=== PATIENT | female | born 1985 | race Two or more races ===

== ENCOUNTER 2016-09-16 09:31 | Emergency (ER) | payer BC ==
[~2016-09-16] VITALS: Ht 162.6 cm; Wt 67.6 kg
[~2016-09-16 09:31] MED LIST: NORPTMEDS CO
[2016-09-16] MEDS ORDERED: ACETAMINOPHEN 325 MG TAB PO ONE (09:45)
[2016-09-16 10:11] VITALS: BP 122/68
[2016-09-16] MEDS ORDERED: cefTRIAXone SOD 1,000 MG VL IM ONE (11:00)
== END 2016-09-16 11:20 | disposition home or self-care (01) ==
LOC: ER 09:31
DX: J03.90 Acute tonsillitis, unspecified (principal); J06.9 Acute upper respiratory infection, unspecified
CPT/HCPCS: 71020; 96372; 99284; J0696

== ENCOUNTER 2016-10-17 20:14 | Emergency (ER) | payer BC ==
[~2016-10-17] VITALS: Ht 154.9 cm; Wt 57.9 kg
[2016-10-17 21:05] LABS: Basophils # (auto) 0.1 uL; Basophils % (auto) 0.5 % (0.0-2.0); Eosinophils # (auto) 0.1 uL; Eosinophils % (auto) 1.4 % (0.0-7.0); Hematocrit 42.1 % (36.0-46.0); Hemoglobin 13.9 g/dL (12.2-16.2); Lymphocytes # (auto) 3.2 uL; Lymphocytes % (auto) 33.6 % (10.0-50.0); Mean Corpuscular Hemoglobin 28.1 pg (28.0-32.0); Mean Corpuscular Volume 85.1 fL (80.0-100.0); Mean Platelet Volume 8.6 fL (7.4-10.4); Monocytes # (auto) 0.6 uL; Monocytes % (auto) 6.7 % (0.0-12.0); Neutrophils # (auto) 5.5 uL; Neutrophils % (auto) 57.8 % (37.0-80.0); Platelet Count (auto) 298 10^3/uL (140-450); Red Cell Distribution Width 13.8 % (11.6-16.0); White Blood Cell 9.5 10^3/uL (4.4-10.8)
[2016-10-17 21:23] LABS: Albumin 4.3 g/dL (3.4-5.0); BUN/Creatinine Ratio 17.3; Calcium 8.8 mg/dL (8.5-10.1); Potassium 3.6 mmol/L (3.5-5.1)
[2016-10-17 21:23] LABS: Urine Bilirubin Negative (Negative); Urine Blood Negative /uL (Negative); Urine Color Yellow (Yellow); Urine Glucose Normal (Normal); Urine Ketone TRACE (Negative); Urine Mucus FEW (None Seen); Urine Nitrite Negative (Negative); Urine RBC 2 /hpf (0 - 4); Urine Squamous Epithelial Cell FEW /hpf (<5); Urine Urobilinogen Normal (Negative); Urine pH 6.5 (5.0-8.0)
[2016-10-17 21:26] LABS: Bilirubin, Total 0.3 mg/dL (0.2-1.0); Total Protein 7.8 g/dL (6.4-8.2)
[2016-10-17] MEDS ORDERED: ACETAMINOPHEN 325 MG TAB PO ONE ×2 (22:17→22:45)
[2016-10-18 01:20] VITALS: BP 118/77
== END 2016-10-18 01:11 | disposition home or self-care (01) ==
LOC: ER 20:17
DX: M54.12 Radiculopathy, cervical region (principal); M79.1 Myalgia; M62.838 Other muscle spasm
CPT/HCPCS: 36415; 71010; 72125; 72128; 80053; 81001; 85025

== ENCOUNTER → 2016-10-24 | Outpatient (CLI) | payer BC ==
[2016-10-24 08:33] LABS: Basophils # (auto) 0 uL; Basophils % (auto) 0.6 % (0.0-2.0); Eosinophils # (auto) 0.2 uL; Eosinophils % (auto) 2.4 % (0.0-7.0); Hematocrit 44.8 % (36.0-46.0); Hemoglobin 14.9 g/dL (12.2-16.2); Lymphocytes # (auto) 2.6 uL; Lymphocytes % (auto) 34.5 % (10.0-50.0); Mean Corpuscular Hemoglobin 28.2 pg (28.0-32.0); Mean Corpuscular Hgb Conc. 33.2 g/dL (32.0-36.0); Mean Corpuscular Volume 84.8 fL (80.0-100.0); Mean Platelet Volume 9.1 fL (7.4-10.4); Monocytes # (auto) 0.5 uL; Monocytes % (auto) 6.7 % (0.0-12.0); Neutrophils # (auto) 4.2 uL; Neutrophils % (auto) 55.8 % (37.0-80.0); Platelet Count (auto) 332 10^3/uL (140-450); Red Cell Distribution Width 13.8 % (11.6-16.0); White Blood Cell 7.5 10^3/uL (4.4-10.8)
[2016-10-24 09:06] LABS: Albumin 4.5 g/dL (3.4-5.0); BUN/Creatinine Ratio 15.7; Bilirubin, Total 0.5 mg/dL (0.2-1.0); Potassium 3.9 mmol/L (3.5-5.1)
== END | disposition home or self-care (01) ==
LOC: LAB 06:54
PROVIDERS: ATTEND Internal Medicine
DX: R61 Generalized hyperhidrosis (principal); M79.1 Myalgia
CPT/HCPCS: 36415; 80053; 82550; 83615; 84439; 84443; 85025; 87040

== ENCOUNTER → 2017-02-15 | Outpatient (CLI) | payer BC | END | disposition home or self-care (01) | LOC: LAB 08:45 | DX: M45.0 Ankylosing spondylitis of multiple sites in spine (principal); E03.9 Hypothyroidism, unspecified; M32.10 Systemic lupus erythematosus, organ or system involvement unspecified; M06.9 Rheumatoid arthritis, unspecified; M25.50 Pain in unspecified joint; D64.9 Anemia, unspecified; I10 Essential (primary) hypertension | CPT/HCPCS: 36415; 84443; 85652; 86038; 86141; 86200; 86431; 86812 ==

== ENCOUNTER → 2017-07-11 | Outpatient (CLI) | payer BC ==
[2017-07-11 10:21] LABS: Basophils # (auto) 0.1 uL; Basophils % (auto) 0.9 % (0.0-2.0); Eosinophils # (auto) 0.1 uL; Eosinophils % (auto) 1.9 % (0.0-7.0); Hematocrit 42.5 % (36.0-46.0); Lymphocytes # (auto) 2.7 uL; Lymphocytes % (auto) 37.9 % (10.0-50.0); Mean Corpuscular Hemoglobin 28.6 pg (28.0-32.0); Mean Corpuscular Hgb Conc. 32.9 g/dL (32.0-36.0); Mean Platelet Volume 8.2 fL (6.9-10.8); Monocytes # (auto) 0.6 uL; Monocytes % (auto) 8.8 % (0.0-12.0); Neutrophils # (auto) 3.6 uL; Neutrophils % (auto) 50.5 % (37.0-80.0); Nucleated Red Blood Cells % 0.1 %; Platelet Count (auto) 255 10^3/uL (140-450); Red Cell Distribution Width 13.6 % (11.8-14.3); White Blood Cell 7.2 10^3/uL (4.4-10.8)
[2017-07-11 11:04] LABS: Albumin 3.9 g/dL (3.4-5.0); BUN/Creatinine Ratio 17.5; Calcium 8.5 mg/dL (8.5-10.1); Potassium 3.6 mmol/L (3.5-5.1)
[2017-07-11 11:06] LABS: Bilirubin, Total 0.5 mg/dL (0.2-1.0); Total Protein 7.7 g/dL (6.4-8.2)
== END | disposition home or self-care (01) ==
LOC: LAB 09:52
PROVIDERS: ATTEND Internal Medicine
DX: B34.9 Viral infection, unspecified (principal); R00.2 Palpitations
CPT/HCPCS: 36415; 80053; 84439; 84443; 85025; 85379; 85652

== ENCOUNTER → 2017-10-17 | Outpatient (CLI) | payer BC | END | disposition home or self-care (01) | LOC: LAB 08:40 | PROVIDERS: ATTEND Obstetrics & Gynecology | DX: N39.0 Urinary tract infection, site not specified (principal); N91.2 Amenorrhea, unspecified | CPT/HCPCS: 36415; 84702; 87086 ==

== ENCOUNTER → 2017-11-28 | Outpatient (CLI) | payer BC ==
[2017-11-28 12:43] LABS: Basophils # (auto) 0.1 uL; Basophils % (auto) 0.8 % (0.0-2.0); Eosinophils # (auto) 0.1 uL; Eosinophils % (auto) 0.7 % (0.0-7.0); Hematocrit 39.8 % (36.0-46.0); Hemoglobin 13.4 g/dL (12.2-16.2); Lymphocytes # (auto) 2.4 uL; Lymphocytes % (auto) 20.4 % (10.0-50.0); Mean Corpuscular Hemoglobin 28.9 pg (28.0-32.0); Mean Corpuscular Hgb Conc. 33.7 g/dL (32.0-36.0); Mean Corpuscular Volume 85.7 fL (80.0-100.0); Neutrophils # (auto) 8.4 uL; Neutrophils % (auto) 70.1 % (37.0-80.0); Platelet Count (auto) 252 10^3/uL (140-450); Red Blood Cells 4.64 10^6/uL (4.0-5.20); Red Cell Distribution Width 13.6 % (11.8-14.3); White Blood Cell 11.9 10^3/uL (4.4-10.8)
[2017-11-28 12:59] LABS: Alcohol, Urine < 3.0 mg/dL (0-5); Amphetamine Screen, Urine NEGATIVE (NEGATIVE); Barbiturate Scree,Urine NEGATIVE (NEGATIVE); Benzodiazephine Screen, Urine NEGATIVE (NEGATIVE); Cannabinoid Screen, Urine NEGATIVE (NEGATIVE); Cocaine Screen, Urine NEGATIVE (NEGATIVE); Opiate Scree,Urine NEGATIVE (NEGATIVE); Phencyclidine Screen, Urine NEGATIVE (NEGATIVE)
[2017-11-29 05:06] LABS: RPR Non Reactive (Non Reactive)
== END | disposition home or self-care (01) ==
LOC: LAB 12:09
PROVIDERS: ATTEND Obstetrics & Gynecology
DX: O23.40 Unspecified infection of urinary tract in pregnancy, unspecified trimester (principal); Z3A.00 Weeks of gestation of pregnancy not specified
CPT/HCPCS: 36415; 80307; 83036; 84144; 84702; 85025; 86592; 86703; 86762; 86850; 86900; 86901; 87086; 87340

== ENCOUNTER 2018-01-03 16:50 | Inpatient (IN) | payer BC ==
[~2018-01-03] VITALS: Ht 154.9 cm; Wt 71.7 kg
[2018-01-03] MEDS ORDERED: LACT. RINGERS/OXYTOCIN 20UNITS 1,000 ML IV SCH ×2 (17:04→17:23)
[2018-01-03] MEDS ORDERED: WITCH HAZEL-GLYCERIN PAD TOP PRN (17:15)
[2018-01-03] MEDS ORDERED: PHISODERM TOP SOLN 240ML BTL TOP PRN (17:15)
[2018-01-03] MEDS ORDERED: DERMOPLAST 60ML BOTTLE TOP PRN (17:15)
[2018-01-03] MEDS ORDERED: LIDOCAINE 2% (LOCAL ANESTH.) PF 5ml SDV ID PRN (17:15)
[2018-01-03] MEDS ORDERED: DIPHENOXYLATE W/ATROPINE 2.5 MG TAB PO PRN (17:30)
[2018-01-03] MEDS ORDERED: PROMETHAZINE HCL 25 MG/ML 1ML IM PRN (17:30)
[2018-01-03] MEDS ORDERED: TERBUTALINE SULFATE 1 MG/ML 1ML VIAL SC PRN (17:30)
[2018-01-03] MEDS ORDERED: ACETAMINOPHEN 325 MG TAB PO PRN (17:30)
[2018-01-03 17:42] LABS: Basophils # (auto) 0.1 uL; Basophils % (auto) 0.4 % (0.0-2.0); Eosinophils # (auto) 0.2 uL; Eosinophils % (auto) 1.7 % (0.0-7.0); Hemoglobin 12.7 g/dL (12.2-16.2); Lymphocytes # (auto) 2.5 uL; Lymphocytes % (auto) 20.9 % (10.0-50.0); Mean Corpuscular Hemoglobin 28.6 pg (28.0-32.0); Mean Corpuscular Hgb Conc. 33.5 g/dL (32.0-36.0); Mean Corpuscular Volume 85.3 fL (80.0-100.0); Monocytes % (auto) 8.3 % (0.0-12.0); Neutrophils # (auto) 8.2 uL; Neutrophils % (auto) 68.7 % (37.0-80.0); Platelet Count (auto) 231 10^3/uL (140-450); Red Blood Cells 4.45 10^6/uL (4.0-5.20); Red Cell Distribution Width 13.5 % (11.8-14.3)
[2018-01-03 17:54] LABS: Alanine Aminotransferase 32 U/L (13-56); Alkaline Phosphatase 49 U/L (45-117); Anion Gap 10 (5-15); Aspartate Aminotransferase 20 U/L (15-37); BUN/Creatinine Ratio 20.7; Bilirubin, Total < 0.1 mg/dL (0.2-1.0); Blood Urea Nitrogen 12 mg/dL (7-18); Calcium 8.5 mg/dL (8.5-10.1); Carbon Dioxide 22 mmol/L (21-32); Chloride 106 mmol/L (98-107); GFR African American 156 mL/min; GFR Non-African American 129 mL/min; Glucose 96 mg/dL (74-106); INR 0.92 (0.9-1.15); Partial Thromboplastin Time 26.6 sec (22.64-33.71); Potassium 3.3 mmol/L (3.5-5.1); Sodium 138 mmol/L (136-145); Total Protein 6.7 g/dL (6.4-8.2)
[2018-01-03 18:39] LABS: Urine Bacteria FEW /hpf (None Seen); Urine Blood Negative /uL (Negative); Urine Specific Gravity 1.008 (1.001-1.035); Urine WBC <1 /hpf (0 - 5)
[2018-01-03] MEDS: LACTATED RINGER'S 1,000 ML IV SCH ×2 (18:40→23:45)
[2018-01-03 18:46] LABS: Alcohol, Urine < 3.0 mg/dL (0-5); Amphetamine Screen, Urine NEGATIVE (NEGATIVE); Barbiturate Scree,Urine NEGATIVE (NEGATIVE); Benzodiazephine Screen, Urine NEGATIVE (NEGATIVE); Cannabinoid Screen, Urine NEGATIVE (NEGATIVE); Cocaine Screen, Urine NEGATIVE (NEGATIVE); Opiate Scree,Urine NEGATIVE (NEGATIVE); Phencyclidine Screen, Urine NEGATIVE (NEGATIVE)
[2018-01-03] MEDS: NALBUPHINE HCL 10 MG/1ml INJECTION IV PRN (23:42)
[2018-01-04] VITALS (7 sets, daily range): BP systolic 104–128; BP diastolic 58–82
[2018-01-04] MEDS ORDERED: BUTORPHANOL TARTRATE 2 MG/1 ML VIAL IV PRN (03:30)
[2018-01-04] MEDS: NALBUPHINE HCL 10 MG/1ml INJECTION IV PRN (07:58)
[2018-01-04] MEDS ORDERED: LACT. RINGERS/OXYTOCIN 20UNITS 500 ML IV ONE (08:27)
[2018-01-04] MEDS ORDERED: IBUPROFEN 600 MG TAB PO PRN (08:30)
[2018-01-04] MEDS ORDERED: NALBUPHINE HCL 10 MG/1ml INJECTION IV PRN (08:45)
[2018-01-04] MEDS ORDERED: LACT. RINGERS/OXYTOCIN 20UNITS 1,000 ML IV SCH (09:27)
[2018-01-04] MEDS ORDERED: METHYLERGONOVINE MALEATE 0.2 MG/ML AMP IM ONE (12:00)
== END 2018-01-04 19:34 | disposition home or self-care (01) | DRG 779 ==
LOC: LDRP 16:50
PROVIDERS: ADMIT Specialist; ATTEND Specialist
PROC: 10E0XZZ Delivery of Products of Conception, External Approach (ICD-10-PCS; principal; 2018-01-04)
PROC: 3E033VJ Introduction of Other Hormone into Peripheral Vein, Percutaneous Approach (ICD-10-PCS; 2018-01-04)
DX: O02.1 Missed abortion (principal); Z37.1 Single stillbirth; Z3A.16 16 weeks gestation of pregnancy
CPT/HCPCS: 36415; 76805; 76856; 80053; 80307; 81001; 85025; 85362; 85610; 85730; 86850; 86900; 86901; 96365; 96366; 96375; J2590

== ENCOUNTER → 2018-03-21 | Outpatient (CLI) | payer BC ==
[2018-03-21 09:06] LABS: Albumin 4.2 g/dL (3.4-5.0); BUN/Creatinine Ratio 16.9; Bilirubin, Total 0.6 mg/dL (0.2-1.0); Calcium 8.6 mg/dL (8.5-10.1); Potassium 3.6 mmol/L (3.5-5.1); Total Protein 8.3 g/dL (6.4-8.2)
[2018-03-21 09:14] LABS: Basophils # (auto) 0.1 uL; Basophils % (auto) 0.8 % (0.0-2.0); Eosinophils # (auto) 0.1 uL; Eosinophils % (auto) 1.3 % (0.0-7.0); Hematocrit 42.1 % (36.0-46.0); Hemoglobin 14.1 g/dL (12.2-16.2); Lymphocytes # (auto) 2.8 uL; Lymphocytes % (auto) 30.4 % (10.0-50.0); Mean Corpuscular Hemoglobin 28.8 pg (28.0-32.0); Mean Corpuscular Hgb Conc. 33.5 g/dL (32.0-36.0); Mean Corpuscular Volume 85.8 fL (80.0-100.0); Monocytes # (auto) 0.8 uL; Monocytes % (auto) 8.8 % (0.0-12.0); Neutrophils # (auto) 5.3 uL; Neutrophils % (auto) 58.7 % (37.0-80.0); Platelet Count (auto) 238 10^3/uL (140-450); Red Blood Cells 4.91 10^6/uL (4.0-5.20); Red Cell Distribution Width 13.9 % (11.8-14.3); White Blood Cell 9.1 10^3/uL (4.4-10.8)
[2018-03-21 09:33] LABS: Free T4 (Free Thyroxine) 0.98 ng/dL (0.89-1.76)
[2018-03-21 09:35] LABS: Follicle Stimulating Hormone 0.44 IU/L (SEE BELOW)
[2018-03-21 11:42] LABS: Urine Bacteria FEW /hpf (None Seen); Urine Blood Negative /uL (Negative); Urine Mucus FEW (None Seen); Urine WBC 3 /hpf (0 - 5)
== END | disposition home or self-care (01) ==
LOC: LAB 08:24
PROVIDERS: ATTEND Internal Medicine
DX: R61 Generalized hyperhidrosis (principal); I10 Essential (primary) hypertension
CPT/HCPCS: 36415; 80053; 80061; 81001; 83001; 83615; 84439; 84443; 85025; 85652; 87040

== ENCOUNTER → 2018-04-05 | Outpatient (CLI) | payer BC | END | disposition home or self-care (01) | LOC: LAB 16:16 | PROVIDERS: ATTEND Internal Medicine | DX: N91.2 Amenorrhea, unspecified (principal) | CPT/HCPCS: 36415; 84702 ==

== ENCOUNTER → 2018-05-03 | Outpatient (CLI) | payer BC ==
[2018-05-03 15:32] LABS: Basophils # (auto) 0 uL; Basophils % (auto) 0.4 % (0.0-2.0); Eosinophils # (auto) 0.1 uL; Eosinophils % (auto) 1.2 % (0.0-7.0); Hematocrit 38.8 % (36.0-46.0); Hemoglobin 13.1 g/dL (12.2-16.2); Lymphocytes # (auto) 2.3 uL; Lymphocytes % (auto) 25.7 % (10.0-50.0); Mean Corpuscular Hemoglobin 29.3 pg (28.0-32.0); Mean Corpuscular Hgb Conc. 33.7 g/dL (32.0-36.0); Monocytes # (auto) 0.8 uL; Monocytes % (auto) 9.3 % (0.0-12.0); Neutrophils # (auto) 5.7 uL; Neutrophils % (auto) 63.4 % (37.0-80.0); Platelet Count (auto) 229 10^3/uL (140-450); Red Blood Cells 4.46 10^6/uL (4.0-5.20); Red Cell Distribution Width 13.9 % (11.8-14.3); White Blood Cell 9.1 10^3/uL (4.4-10.8)
[2018-05-03 15:47] LABS: Alcohol, Urine < 3.0 mg/dL (0-5); Amphetamine Screen, Urine NEGATIVE (NEGATIVE); Barbiturate Scree,Urine NEGATIVE (NEGATIVE); Benzodiazephine Screen, Urine NEGATIVE (NEGATIVE); Cannabinoid Screen, Urine NEGATIVE (NEGATIVE); Cocaine Screen, Urine NEGATIVE (NEGATIVE); Opiate Scree,Urine NEGATIVE (NEGATIVE); Phencyclidine Screen, Urine NEGATIVE (NEGATIVE)
[2018-05-04 06:06] LABS: RPR Non Reactive (Non Reactive)
== END | disposition home or self-care (01) ==
LOC: LAB 13:31
PROVIDERS: ATTEND Obstetrics & Gynecology
DX: Z34.81 Encounter for supervision of other normal pregnancy, first trimester (principal); Z3A.01 Less than 8 weeks gestation of pregnancy
CPT/HCPCS: 36415; 80307; 83036; 84144; 84702; 85025; 86592; 86703; 86762; 86850; 86900; 86901; 87086; 87340

== ENCOUNTER 2018-05-18 03:47 | Emergency (ER) | payer BC ==
[~2018-05-18] VITALS: Ht 154.9 cm; Wt 73.5 kg
[2018-05-18] MEDS ORDERED: ACETAMINOPHEN 500 MG TAB PO ONE (07:30)
[2018-05-18 08:24] VITALS: BP 113/71
== END 2018-05-18 08:45 | disposition home or self-care (01) ==
LOC: ER 03:52
DX: O26.891 Other specified pregnancy related conditions, first trimester (principal); M54.41 Lumbago with sciatica, right side; Z3A.12 12 weeks gestation of pregnancy
CPT/HCPCS: 76801

== ENCOUNTER 2018-06-14 02:27 | Emergency (ER) | payer BC ==
[~2018-06-14] VITALS: Ht 154.9 cm; Wt 73.0 kg
[2018-06-14 03:14] LABS: Basophils # (auto) 0.1 uL; Basophils % (auto) 0.5 % (0.0-2.0); Eosinophils # (auto) 0.4 uL; Eosinophils % (auto) 3.7 % (0.0-7.0); Hematocrit 37.6 % (36.0-46.0); Hemoglobin 12.6 g/dL (12.2-16.2); Lymphocytes # (auto) 2.6 uL; Lymphocytes % (auto) 25.3 % (10.0-50.0); Mean Corpuscular Hemoglobin 28.7 pg (28.0-32.0); Mean Corpuscular Hgb Conc. 33.6 g/dL (32.0-36.0); Mean Corpuscular Volume 85.3 fL (80.0-100.0); Monocytes # (auto) 0.9 uL; Monocytes % (auto) 9.4 % (0.0-12.0); Neutrophils # (auto) 6.2 uL; Neutrophils % (auto) 61.1 % (37.0-80.0); Platelet Count (auto) 192 10^3/uL (140-450); Red Cell Distribution Width 13.4 % (11.8-14.3); White Blood Cell 10.1 10^3/uL (4.4-10.8)
[2018-06-14 03:35] LABS: Albumin 2.9 g/dL (3.4-5.0); Calcium 8.5 mg/dL (8.5-10.1); Potassium 3.1 mmol/L (3.5-5.1)
[2018-06-14 03:37] LABS: Bilirubin, Total 0.2 mg/dL (0.2-1.0); Total Protein 6.3 g/dL (6.4-8.2)
[2018-06-14 04:03] LABS: Urine Bacteria FEW /hpf (None Seen); Urine Blood TRACE /uL (Negative); Urine Specific Gravity 1.006 (1.001-1.035); Urine WBC 2 /hpf (0 - 5)
[2018-06-14] MEDS ORDERED: ONDANSETRON HCL 4 MG/2 ML VIAL IV ONE (04:45)
[2018-06-14] MEDS ORDERED: SODIUM CHLORIDE 0.9% 1,000 ML IV ONE (04:45)
[2018-06-14 07:50] VITALS: BP 95/65
[2018-06-14] MEDS ORDERED: POTASSIUM EFFERVESENT TAB 25 MEQ PO ONE (08:30)
== END 2018-06-14 08:54 | disposition home or self-care (01) ==
LOC: ER 02:27
DX: O46.92 Antepartum hemorrhage, unspecified, second trimester (principal); O21.8 Other vomiting complicating pregnancy; Z3A.17 17 weeks gestation of pregnancy
CPT/HCPCS: 36415; 76805; 80053; 81001; 84702; 85025; 94761; 96361; 96374; 99285; J2405; J7030

== ENCOUNTER 2018-06-16 06:53 | Emergency (ER) | payer BC ==
[~2018-06-16] VITALS: Ht 154.9 cm; Wt 73.0 kg
[2018-06-16 08:37] LABS: Basophils # (auto) 0 uL; Basophils % (auto) 0.3 % (0.0-2.0); Eosinophils # (auto) 0.2 uL; Eosinophils % (auto) 1.6 % (0.0-7.0); Hematocrit 38.7 % (36.0-46.0); Lymphocytes % (auto) 18.9 % (10.0-50.0); Mean Corpuscular Hemoglobin 28.9 pg (28.0-32.0); Mean Corpuscular Hgb Conc. 33.7 g/dL (32.0-36.0); Mean Corpuscular Volume 85.9 fL (80.0-100.0); Monocytes # (auto) 0.7 uL; Monocytes % (auto) 7.2 % (0.0-12.0); Neutrophils # (auto) 7.5 uL; Nucleated Red Blood Cells % 0.1 %; Platelet Count (auto) 186 10^3/uL (140-450); Red Cell Distribution Width 13.4 % (11.8-14.3); White Blood Cell 10.4 10^3/uL (4.4-10.8)
[2018-06-16 08:44] LABS: Albumin 2.9 g/dL (3.4-5.0); BUN/Creatinine Ratio 13.7; Calcium 8.4 mg/dL (8.5-10.1); Potassium 3.4 mmol/L (3.5-5.1)
[2018-06-16 08:47] LABS: Bilirubin, Total 0.2 mg/dL (0.2-1.0); Total Protein 6.4 g/dL (6.4-8.2)
[2018-06-16 09:19] LABS: Urine Amorphous Crystal FEW /hpf (None Seen); Urine Bacteria FEW /hpf (None Seen); Urine Blood TRACE /uL (Negative); Urine Mucus FEW (None Seen); Urine Specific Gravity 1.011 (1.001-1.035); Urine WBC 2 /hpf (0 - 5)
[2018-06-16 11:20] VITALS: BP 124/67
== END 2018-06-16 11:24 | disposition home or self-care (01) ==
LOC: ER 06:53
DX: O20.0 Threatened abortion (principal); Z3A.16 16 weeks gestation of pregnancy
CPT/HCPCS: 36415; 76805; 80053; 81001; 84702; 85025; 99285; J7030

== ENCOUNTER → 2018-09-05 | Outpatient (CLI) | payer BC ==
[2018-09-05 07:57] LABS: Basophils # (auto) 0.1 uL; Basophils % (auto) 0.4 % (0.0-2.0); Eosinophils # (auto) 0.2 uL; Eosinophils % (auto) 1.7 % (0.0-7.0); Hematocrit 37.9 % (36.0-46.0); Hemoglobin 12.3 g/dL (12.2-16.2); Lymphocytes # (auto) 2.2 uL; Lymphocytes % (auto) 18.1 % (10.0-50.0); Mean Corpuscular Hemoglobin 27.4 pg (28.0-32.0); Mean Corpuscular Hgb Conc. 32.4 g/dL (32.0-36.0); Mean Corpuscular Volume 84.5 fL (80.0-100.0); Monocytes % (auto) 8.5 % (0.0-12.0); Neutrophils # (auto) 8.7 uL; Neutrophils % (auto) 71.3 % (37.0-80.0); Platelet Count (auto) 208 10^3/uL (140-450); Red Blood Cells 4.49 10^6/uL (4.0-5.20); Red Cell Distribution Width 13.9 % (11.8-14.3); White Blood Cell 12.2 10^3/uL (4.4-10.8)
== END | disposition home or self-care (01) ==
LOC: LAB 07:06
PROVIDERS: ATTEND Obstetrics & Gynecology
DX: O99.810 Abnormal glucose complicating pregnancy (principal); Z3A.27 27 weeks gestation of pregnancy
CPT/HCPCS: 36415; 82951; 85025

== ENCOUNTER 2018-09-27 10:05 | Observation (INO) | payer BC ==
[2018-09-27] MEDS ORDERED: PREN-96 PO (10:55)
[2018-09-27] MEDS ORDERED: NIF10C PO (10:55)
== END 2018-09-27 12:00 | disposition home or self-care (01) | DRG 833 ==
LOC: LDRP 10:05
PROVIDERS: ADMIT Obstetrics & Gynecology; ATTEND Obstetrics & Gynecology
DX: O26.893 Other specified pregnancy related conditions, third trimester (principal); R10.30 Lower abdominal pain, unspecified; Z3A.31 31 weeks gestation of pregnancy
CPT/HCPCS: 59025; 76815; 81002; G0378

== ENCOUNTER 2018-10-05 08:03 | Observation (INO) | payer BC ==
[~2018-10-05 08:03] MED LIST changes: +NIF10C PO; -NORPTMEDS CO; +PREN-96 PO
== END 2018-10-05 09:55 | disposition home or self-care (01) | DRG 833 ==
LOC: LDRP 08:03
PROVIDERS: ADMIT Obstetrics & Gynecology; ATTEND Obstetrics & Gynecology
DX: O60.03 Preterm labor without delivery, third trimester (principal); Z3A.32 32 weeks gestation of pregnancy
CPT/HCPCS: 59025; 76818; 81002; G0378

== ENCOUNTER 2018-10-08 13:40 | Observation (INO) | payer BC | END 2018-10-08 14:45 | disposition home or self-care (01) | DRG 832 | LOC: LDRP 13:40 | PROVIDERS: ADMIT Obstetrics & Gynecology; ATTEND Obstetrics & Gynecology | DX: O60.03 Preterm labor without delivery, third trimester (principal); O23.03 Infections of kidney in pregnancy, third trimester; N13.30 Unspecified hydronephrosis; Z3A.32 32 weeks gestation of pregnancy | CPT/HCPCS: 76818; G0378; 59025; 81002 ==

== ENCOUNTER 2018-10-12 09:00 | Observation (INO) | payer BC ==
[~2018-10-12] VITALS: Ht 154.9 cm; Wt 80.7 kg
[2018-10-12] MEDS ORDERED: CEPH250C PO (09:33)
== END 2018-10-12 10:20 | disposition home or self-care (01) | DRG 832 ==
LOC: LDRP 09:00
PROVIDERS: ADMIT Obstetrics & Gynecology; ATTEND Obstetrics & Gynecology
DX: O23.43 Unspecified infection of urinary tract in pregnancy, third trimester (principal); N13.30 Unspecified hydronephrosis; Z3A.33 33 weeks gestation of pregnancy
CPT/HCPCS: 59025; 76818; 81002; G0378

== ENCOUNTER 2018-10-15 11:19 | Observation (INO) | payer BC ==
[~2018-10-15 11:19] MED LIST changes: +CEPH250C PO
== END 2018-10-15 12:25 | disposition home or self-care (01) | DRG 776 ==
LOC: LDRP 11:19
PROVIDERS: ADMIT Specialist; ATTEND Specialist
DX: O99.89 Other specified diseases and conditions complicating pregnancy, childbirth and the puerperium (principal); N13.30 Unspecified hydronephrosis; Z3A.34 34 weeks gestation of pregnancy
CPT/HCPCS: 59025; 76818; 81002; G0378

== ENCOUNTER 2018-10-19 08:55 | Observation (INO) | payer BC | END 2018-10-19 10:19 | disposition home or self-care (01) | DRG 776 | LOC: LDRP 08:55 | PROVIDERS: ADMIT Specialist; ATTEND Specialist | DX: O99.89 Other specified diseases and conditions complicating pregnancy, childbirth and the puerperium (principal); N13.30 Unspecified hydronephrosis; Z3A.34 34 weeks gestation of pregnancy | CPT/HCPCS: 76818; G0378; 59025; 81002 ==

== ENCOUNTER 2018-10-23 14:29 | Observation (INO) | payer BC ==
[~2018-10-23 14:29] MED LIST changes: -CEPH250C PO
[2018-10-23 15:08] LABS: Basophils # (auto) 0 uL; Basophils % (auto) 0.3 % (0.0-2.0); Eosinophils # (auto) 0.1 uL; Hematocrit 34.8 % (36.0-46.0); Hemoglobin 11.1 g/dL (12.2-16.2); Monocytes # (auto) 0.8 uL; Red Blood Cells 4.34 10^6/uL (4.0-5.20)
[2018-10-23 15:09] LABS: Lymphocytes # (auto) 1.9 uL; Lymphocytes % (auto) 22.7 % (10.0-50.0); Mean Corpuscular Hemoglobin 25.6 pg (28.0-32.0); Mean Corpuscular Volume 80.1 fL (80.0-100.0); Monocytes % (auto) 9.5 % (0.0-12.0); Neutrophils # (auto) 5.6 uL; Neutrophils % (auto) 66.5 % (37.0-80.0); Platelet Count (auto) 201 10^3/uL (140-450); Red Cell Distribution Width 15.2 % (11.8-14.3); White Blood Cell 8.4 10^3/uL (4.4-10.8)
[2018-10-24 07:05] LABS: RPR Non Reactive (Non Reactive)
[2018-10-25 09:55] LABS: Protein, Urine 10.5 mg/dL (0.0-11.9)
[2018-10-25 10:10] LABS: 24 Hr. Total Protein, Urine 220.5 mg/24 Hr (<149.1)
== END 2018-10-23 17:15 | disposition home or self-care (01) | DRG 776 ==
LOC: LAB 14:29 → LDRP 15:04
PROVIDERS: ADMIT Specialist; ATTEND Specialist
DX: O99.89 Other specified diseases and conditions complicating pregnancy, childbirth and the puerperium (principal); N13.30 Unspecified hydronephrosis; O26.893 Other specified pregnancy related conditions, third trimester; H53.8 Other visual disturbances; N89.8 Other specified noninflammatory disorders of vagina; Z3A.35 35 weeks gestation of pregnancy
CPT/HCPCS: 36415; 59025; 76818; 81002; 84156; 85025; 86592; 87081; G0378

== ENCOUNTER 2018-10-30 11:17 | Observation (INO) | payer BC ==
[~2018-10-30] VITALS: Ht 154.9 cm; Wt 81.6 kg
[~2018-10-30 11:17] MED LIST changes: -NIF10C PO
== END 2018-10-30 13:25 | disposition home or self-care (01) | DRG 776 ==
LOC: LDRP 11:17
PROVIDERS: ADMIT Specialist; ATTEND Specialist
DX: O99.89 Other specified diseases and conditions complicating pregnancy, childbirth and the puerperium (principal); N13.30 Unspecified hydronephrosis; Z3A.36 36 weeks gestation of pregnancy
CPT/HCPCS: 59025; 76818; 81002; G0378

== ENCOUNTER 2018-11-02 09:40 | Observation (INO) | payer BC | END 2018-11-02 12:40 | disposition home or self-care (01) | DRG 776 | LOC: LDRP 09:40 | PROVIDERS: ADMIT Specialist; ATTEND Specialist | DX: O99.89 Other specified diseases and conditions complicating pregnancy, childbirth and the puerperium (principal); N13.30 Unspecified hydronephrosis; Z3A.36 36 weeks gestation of pregnancy | CPT/HCPCS: 59025; 76818; 81002; G0378 ==

== ENCOUNTER 2018-11-05 14:20 | Observation (INO) | payer BC | END 2018-11-05 15:35 | disposition home or self-care (01) | DRG 776 | LOC: LDRP 14:20 | PROVIDERS: ADMIT Obstetrics & Gynecology; ATTEND Obstetrics & Gynecology | DX: O99.89 Other specified diseases and conditions complicating pregnancy, childbirth and the puerperium (principal); N13.30 Unspecified hydronephrosis; O21.2 Late vomiting of pregnancy; O26.893 Other specified pregnancy related conditions, third trimester; R10.9 Unspecified abdominal pain; N89.8 Other specified noninflammatory disorders of vagina; Z3A.37 37 weeks gestation of pregnancy | CPT/HCPCS: 59025; 76818; 81002; G0378 ==

== ENCOUNTER 2018-11-09 10:00 | Observation (INO) | payer BC | END 2018-11-09 12:00 | disposition home or self-care (01) | DRG 776 | LOC: LDRP 10:00 | PROVIDERS: ADMIT Obstetrics & Gynecology; ATTEND Obstetrics & Gynecology | DX: O99.89 Other specified diseases and conditions complicating pregnancy, childbirth and the puerperium (principal); Z3A.37 37 weeks gestation of pregnancy | CPT/HCPCS: 59025; 76818; 81002; G0378 ==

== ENCOUNTER 2018-11-15 10:14 | Observation (INO) | payer BC ==
[2018-11-15 12:08] LABS: Albumin 2.6 g/dL (3.4-5.0); Calcium 8.2 mg/dL (8.5-10.1); Potassium 3.6 mmol/L (3.5-5.1)
[2018-11-15 12:11] LABS: BUN/Creatinine Ratio 12.5
[2018-11-15 12:12] LABS: Bilirubin, Total 0.3 mg/dL (0.2-1.0); Total Protein 5.8 g/dL (6.4-8.2)
== END 2018-11-15 12:25 | disposition home or self-care (01) | DRG 776 ==
LOC: LDRP 10:14
PROVIDERS: ADMIT Specialist; ATTEND Specialist
DX: O99.89 Other specified diseases and conditions complicating pregnancy, childbirth and the puerperium (principal); N13.30 Unspecified hydronephrosis; O26.893 Other specified pregnancy related conditions, third trimester; R21 Rash and other nonspecific skin eruption; O62.9 Abnormality of forces of labor, unspecified; Z3A.38 38 weeks gestation of pregnancy; N89.8 Other specified noninflammatory disorders of vagina
CPT/HCPCS: 36415; 59025; 76818; 80053; 81002; G0378

== ENCOUNTER 2018-11-17 08:20 | Observation (INO) | payer BC | END 2018-11-17 09:55 | disposition home or self-care (01) | DRG 833 | LOC: LDRP 08:20 | PROVIDERS: ADMIT Specialist; ATTEND Specialist | DX: O21.2 Late vomiting of pregnancy (principal); Z3A.38 38 weeks gestation of pregnancy | CPT/HCPCS: 59025; 76818; 81002; G0378 ==

== ENCOUNTER 2018-11-19 09:20 | Observation (INO) | payer BC | END 2018-11-19 11:50 | disposition home or self-care (01) | DRG 776 | LOC: LDRP 09:20 | PROVIDERS: ADMIT Obstetrics & Gynecology; ATTEND Obstetrics & Gynecology | DX: O99.89 Other specified diseases and conditions complicating pregnancy, childbirth and the puerperium (principal); N13.30 Unspecified hydronephrosis; O21.2 Late vomiting of pregnancy; O26.893 Other specified pregnancy related conditions, third trimester; R51 Headache; Z3A.39 39 weeks gestation of pregnancy | CPT/HCPCS: 59025; 76818; 81002; G0378 ==

== ENCOUNTER 2018-11-20 08:05 | Inpatient (IN) | payer BC ==
[~2018-11-20] VITALS: Ht 154.9 cm; Wt 83.9 kg
[2018-11-20 09:24] LABS: Urine Bacteria MANY /hpf (None Seen); Urine Blood Negative /uL (Negative); Urine Mucus FEW (None Seen); Urine Specific Gravity 1.025 (1.001-1.035); Urine WBC 18 /hpf (0 - 5)
[2018-11-20] MEDS ORDERED: LACTATED RINGER'S 1,000 ML IV ONE (09:45)
[2018-11-20 10:24] LABS: Protein, Urine 72.9 mg/dL (0.0-11.9)
[2018-11-20 10:46] LABS: Eosinophils # (auto) 0.1 uL; Hematocrit 33.9 % (36.0-46.0)
[2018-11-20 10:49] LABS: Basophils # (auto) 0 uL; Basophils % (auto) 0.4 % (0.0-2.0); Eosinophils % (auto) 1.2 % (0.0-7.0); Hemoglobin 10.8 g/dL (12.2-16.2); Lymphocytes # (auto) 1.7 uL; Lymphocytes % (auto) 18.7 % (10.0-50.0); Mean Corpuscular Hemoglobin 24.9 pg (28.0-32.0); Mean Corpuscular Hgb Conc. 31.9 g/dL (32.0-36.0); Mean Corpuscular Volume 77.9 fL (80.0-100.0); Monocytes # (auto) 0.7 uL; Neutrophils # (auto) 6.7 uL; Neutrophils % (auto) 71.7 % (37.0-80.0); Platelet Count (auto) 184 10^3/uL (140-450); Red Blood Cells 4.35 10^6/uL (4.0-5.20); Red Cell Distribution Width 16.1 % (11.8-14.3); White Blood Cell 9.3 10^3/uL (4.4-10.8)
[2018-11-20 10:58] LABS: INR 0.91 (0.9-1.15); Partial Thromboplastin Time 25.4 sec (23.78-33.04); Prothrombin Time 9.8 sec (9.27-12.13)
[2018-11-20 11:02] LABS: Albumin 2.5 g/dL (3.4-5.0); BUN/Creatinine Ratio 11.7; Calcium 8.4 mg/dL (8.5-10.1); Potassium 3.8 mmol/L (3.5-5.1); Uric Acid 3.6 mg/dL (2.6-6.0)
[2018-11-20 11:05] LABS: Bilirubin, Total 0.2 mg/dL (0.2-1.0); Total Protein 5.9 g/dL (6.4-8.2)
[2018-11-20] MEDS ORDERED: LACTATED RINGER'S 1,000 ML IV SCH (12:14)
[2018-11-20] MEDS ORDERED: LACT. RINGERS/OXYTOCIN 20UNITS 1,000 ML IV SCH ×2 (12:14→17:20)
[2018-11-20] MEDS ORDERED: WITCH HAZEL-GLYCERIN PAD TOP PRN (12:15)
[2018-11-20] MEDS ORDERED: METHYLERGONOVINE MALEATE 0.2 MG/ML AMP IM PRN (12:15)
[2018-11-20] MEDS ORDERED: DERMOPLAST 60ML BOTTLE TOP PRN (12:15)
[2018-11-20] MEDS ORDERED: PHISODERM TOP SOLN 240ML BTL TOP PRN (12:15)
[2018-11-20] MEDS ORDERED: LIDOCAINE 2%HCL (LOCAL ANESTH.) INJ 20ML MDV ID ONE (12:15)
[2018-11-20] MEDS ORDERED: MILK OF MAGNESIA 30ML SUSP PO ONE (12:30)
[2018-11-20] MEDS ORDERED: SODIUM CITR/CITRIC ACID ORAL SOLN 30 ML PO SCH (13:30)
[2018-11-20] MEDS ORDERED: TETRACAINE 1% INJ 2 ML VIAL IJ ONE (16:08)
[2018-11-20] MEDS ORDERED: fentaNYL CITRATE 100 MCG/2 ML VL ONE (16:10)
[2018-11-20] MEDS ORDERED: MIDAZOLAM HCL 1MG/1ML-2 ML VIAL ONE (16:10)
[2018-11-20] MEDS ORDERED: MORPHINE SULF(PF) 0.5MG/ML 10ML VIAL ONE (16:11)
[2018-11-20] MEDS ORDERED: ceFAZolin 1GM VL ONE (16:11)
[2018-11-20] MEDS ORDERED: OXYTOCIN 10 UNIT/ML 10ML VIAL ONE (16:11)
[2018-11-20] MEDS ORDERED: ONDANSETRON HCL 4 MG/2 ML VIAL IV ONE (16:30)
[2018-11-20] MEDS ORDERED: LABETALOL HCL 5 MG/ML 4ML SYRINGE IV PRN (16:30)
[2018-11-20] MEDS ORDERED: diphenhdrAMINE HCL 50 MG/1 ML VL IV PRN (16:30)
[2018-11-20] MEDS ORDERED: NALBUPHINE HCL 10 MG/1ml INJECTION SUBCUT ONE (16:30)
[2018-11-20] MEDS ORDERED: HYDROmorphone HCL 2 MG/ML VL IV PRN (16:30)
[2018-11-20] MEDS ORDERED: DexAMETHasone SOD PHOS 10MG/1ML VIAL INJ IV PRN (16:30)
[2018-11-20] MEDS ORDERED: ONDANSETRON HCL 4 MG/2 ML VIAL IV PRN ×2 (16:30→17:30)
[2018-11-20] MEDS ORDERED: ePHEDrine SULFATE 50 MG/ML AMP IV PRN (16:30)
[2018-11-20] MEDS ORDERED: NALOXONE HCL 0.4 MG/ML VIAL IV PRN (16:30)
[2018-11-20] MEDS ORDERED: KETOROLAC TROMETH 30 MG/ML 1ML VIAL IV PRN (16:30)
[2018-11-20] MEDS ORDERED: KETOROLAC TROMETH 30 MG/ML 1ML VIAL IV ONE (16:30)
[2018-11-20] MEDS ORDERED: hydrALAZINE HCL 20 MG/ML VL IV PRN (16:30)
[2018-11-20] MEDS ORDERED: MIDAZOLAM HCL 1MG/1ML-2 ML VIAL IV PRN (16:30)
[2018-11-20] MEDS ORDERED: PHENYLEPHRINE HCL 10 MG/ML VL ONE (17:00)
[2018-11-20] MEDS: ceFAZolin 1GM/50ML 50 ML IV SCH (17:30)
[2018-11-20] MEDS ORDERED: MORPHINE SULFATE 4 MG/ML SYR/VIAL IV PRN (17:30)
[2018-11-20] MEDS ORDERED: MORPHINE SULFATE 4 MG/ML SYR/VIAL IV ONE (18:00)
[2018-11-20] MEDS ORDERED: OXYTOCIN 10UNIT/ML 1ML VIAL ONE (18:11)
--- NOTE | 2018-11-20 18:45 | NUR ---
Post Op for LDRP: Received patient from PACU via bed to room 7A. Patient A/A/Ox4, drowsy, abdominal binder and bilateral SCD's are in place, IV fluids placed on pump and infusing per order, incisional site dressing clean/dry/intact and Bautista Catheter to gravity draining clear yellow urine. Incentive Spirometer at bedside and instruction on proper use with return demonstration done by patient.
[2018-11-20 19:00] VITALS: BP 93/59
[2018-11-20 20:00] VITALS: BP 101/71
[2018-11-20 21:00] VITALS: BP 103/72
[2018-11-20 22:00] VITALS: BP 114/69
[2018-11-20] MEDS: KETOROLAC TROMETH 30 MG/ML 1ML VIAL IV PRN (22:10)
[2018-11-20 22:21] LABS: Basophils # (auto) 0 uL; Eosinophils # (auto) 0.1 uL; Hemoglobin 9.5 g/dL (12.2-16.2); Monocytes # (auto) 0.8 uL; Red Cell Distribution Width 16.6 % (11.8-14.3)
[2018-11-20 22:23] LABS: Basophils % (auto) 0.2 % (0.0-2.0); Eosinophils % (auto) 0.6 % (0.0-7.0); Hematocrit 29.7 % (36.0-46.0); Lymphocytes # (auto) 1.8 uL; Lymphocytes % (auto) 14.5 % (10.0-50.0); Mean Corpuscular Hemoglobin 25.2 pg (28.0-32.0); Mean Corpuscular Hgb Conc. 32.1 g/dL (32.0-36.0); Mean Corpuscular Volume 78.5 fL (80.0-100.0); Monocytes % (auto) 6.3 % (0.0-12.0); Neutrophils # (auto) 9.9 uL; Neutrophils % (auto) 78.4 % (37.0-80.0); Platelet Count (auto) 159 10^3/uL (140-450); Red Blood Cells 3.79 10^6/uL (4.0-5.20); White Blood Cell 12.6 10^3/uL (4.4-10.8)
[2018-11-20 23:00] VITALS: BP 99/59
[2018-11-21] VITALS (12 sets, daily range): BP systolic 91–122; BP diastolic 54–73
[2018-11-21] MEDS: ceFAZolin 1GM/50ML 50 ML IV SCH ×2 (01:00→09:30)
[2018-11-21] MEDS: KETOROLAC TROMETH 30 MG/ML 1ML VIAL IV PRN (04:58)
[2018-11-21 05:05] LABS: RPR Non Reactive (Non Reactive)
[2018-11-21 05:33] LABS: Eosinophils # (auto) 0.1 uL; Hemoglobin 8.5 g/dL (12.2-16.2); Lymphocytes # (auto) 1.2 uL; Monocytes # (auto) 0.7 uL; Neutrophils # (auto) 7.9 uL
[2018-11-21 05:34] LABS: Basophils # (auto) 0.1 uL; Basophils % (auto) 0.7 % (0.0-2.0); Eosinophils % (auto) 0.9 % (0.0-7.0); Hematocrit 26.1 % (36.0-46.0); Lymphocytes % (auto) 12.5 % (10.0-50.0); Mean Corpuscular Hemoglobin 25.5 pg (28.0-32.0); Mean Corpuscular Hgb Conc. 32.8 g/dL (32.0-36.0); Mean Corpuscular Volume 77.8 fL (80.0-100.0); Monocytes % (auto) 6.7 % (0.0-12.0); Neutrophils % (auto) 79.2 % (37.0-80.0); Platelet Count (auto) 139 10^3/uL (140-450); Red Blood Cells 3.35 10^6/uL (4.0-5.20); Red Cell Distribution Width 16.6 % (11.8-14.3)
--- NOTE | 2018-11-21 06:25 | NUR ---
Burton catheter dc'd Order to discontinue burton catheter. Burton dc'd with clean technique following deflation of balloon. Patient tolerated well with no complaints of pain. Continue care.
--- NOTE | 2018-11-21 06:30 | NUR ---
Ambulation: Patient OOB with standby assistance by RN. Patient ambulated to bathroom with steady gait. Patient unable to void at this time. [facility] teaching provided with returned demonstration by patient. Clean gown provided and bed linen changed. Patient ambulated back to bed with steady gait and no distress noted.
--- NOTE | 2018-11-21 06:47 | NUR ---
PT AMBULATING IN HALLWAYS WITH STEADY GAIT
[2018-11-21] MEDS ORDERED: HYDROcodone-ACET 5/325MG TAB PO PRN (08:15)
[2018-11-21] MEDS: DOCUSATE SOD 100 MG CAP PO SCH ×2 (08:28→22:34)
[2018-11-21] MEDS: IBUPROFEN 800 MG TAB PO PRN ×2 (08:28→20:00)
[2018-11-21 09:07] LABS: Rubella Antibodies, IgG 1.59 index (Immune >0.99)
--- NOTE | 2018-11-21 11:42 | NUR ---
PT AMBULATING IN HALLWAYS WITH STEADY GAIT
--- NOTE | 2018-11-21 11:56 | NUR ---
Bottle-feeding Education: Patient encouraged to breastfeed. Benefits of and the risk of providing formula to was discussed. Patient verbalized understanding of the benefits and is aware of risk and insists on bottle-feeding. Formula provided and instruction on formula preperation from the [facility] booklet reviewed with patient.
--- NOTE | 2018-11-21 14:41 | NUR ---
PT AMBULATING IN HALLWAYS WITH STEADY GAIT
[2018-11-21] MEDS: SIMETHICONE 80 MG CHEWABLE TABLET PO PRN (16:03)
[2018-11-21] MEDS: HYDROcodone-ACET 5/325MG TAB PO PRN (16:03)
[2018-11-21] MEDS ORDERED: ceFAZolin 1GM/50ML 50 ML IV ONE (17:00)
--- NOTE | 2018-11-21 17:00 | NUR ---
Dr. Marquez notified IV is leaking when last dose of ancef is due, orders received to d/c IV and last antibiotic.
[2018-11-22 02:52] VITALS: BP 108/67
[2018-11-22] MEDS: HYDROcodone-ACET 5/325MG TAB PO PRN ×2 (04:28→20:00)
[2018-11-22 07:26] VITALS: BP 102/65
[2018-11-22] MEDS: DOCUSATE SOD 100 MG CAP PO SCH ×2 (09:44→22:00)
[2018-11-22] MEDS: IBUPROFEN 800 MG TAB PO PRN (09:46)
[2018-11-22 11:00] VITALS: BP 112/72
[2018-11-22 15:00] VITALS: BP 99/56
--- NOTE | 2018-11-22 16:00 | NUR ---
patient was asked if she wants her dulcolax suppository now and she said she will wait for tonight and see if she can have a bowel movement without a suppository.
[2018-11-22] MEDS ORDERED: BISACODYL 10 MG RECT SUPP PR ONE (16:15)
[2018-11-22] MEDS ORDERED: TETANUS-DIPTH-ACEL PERTUSSIS 0.5ML SYRG IM ONE (18:00)
[2018-11-22 19:00] VITALS: BP 117/72
[2018-11-22] MEDS: SIMETHICONE 80 MG CHEWABLE TABLET PO PRN (20:00)
[2018-11-22 23:00] VITALS: BP 112/70
[2018-11-23] VITALS: BP 106/60
[2018-11-23] MEDS: HYDROcodone-ACET 5/325MG TAB PO PRN (02:57)
[2018-11-23 03:00] VITALS: BP 102/75
[2018-11-23 07:19] VITALS: BP 121/71
--- NOTE | 2018-11-23 09:15 | NUR ---
natalia removed and well tolerated.a 1 1/2 cms of skin is opened and showed to charge nurse shirley and a little bit of bleeding noted.steri strips applied and no further bleeding noted.dr. posada was called and informed her about the open skin on the left side of the abdomen,received no new orders but to place a steri strips on it.
[2018-11-23] MEDS: IBUPROFEN 800 MG TAB PO PRN (09:16)
[2018-11-23] MEDS: DOCUSATE SOD 100 MG CAP PO SCH (09:34)
--- NOTE | 2018-11-23 10:45 | NUR ---
Discharge: Discharge instructions given to mother of baby as ordered. Copies of and hearing screening, along with vaccination record given to mother. Mother encouraged to follow up with [employer] of choice and to give envelope with infants information to [facility] former brace end at 1st office visit. All questions and concerns addressed. Mother of baby verbalized understanding and agreed to comply. Mother of baby encouraged to prepare for departure and notify RN ready to leave room for ID band removal/verification and car seat check.
--- NOTE | 2018-11-23 10:45 | NUR ---
Discharge: Discharge instructions given as ordered. Pt encouraged to follow up with [employer] as instructed. All questions and concerns addressed. Patient verbalized understanding. Medication reconciliation completed and copy given to patient. All required/requested vaccines given and copies of vaccinations given to patient. Patient encouraged to prepare to depart unit.
[2018-11-23 11:08] VITALS: BP 108/80
--- NOTE | 2018-11-23 11:25 | NUR ---
Discharge: Patient taken to vehicle via wheelchair with all personal belongings, accompanied by staff and family member. No distress noted at time of departure, no adverse changes in status since initial assessment.
== END 2018-11-23 11:25 | disposition home or self-care (01) | DRG 788 ==
LOC: OBSVTOIN 08:05 → LDRP 08:05
PROVIDERS: ADMIT Obstetrics & Gynecology; ATTEND Obstetrics & Gynecology
PROC: 10D00Z1 Extraction of Products of Conception, Low, Open Approach (ICD-10-PCS; principal; 2018-11-20 16:23)
DX: O76 Abnormality in fetal heart rate and rhythm complicating labor and delivery (principal); O14.94 Unspecified pre-eclampsia, complicating childbirth; O13.4 Gestational [pregnancy-induced] hypertension without significant proteinuria, complicating childbirth; O77.0 Labor and delivery complicated by meconium in amniotic fluid; Z37.0 Single live birth; Z3A.39 39 weeks gestation of pregnancy
CPT/HCPCS: 36415; 51702; 59025; 76818; 80053; 81001; 81002; 82570; 84156; 84550; 85025; 85610; 85730; 86592; 86762; 86850; 86900; 86901; 90472; 90715; 94760; 96365; 96366; 96374; 96375; G0378; J0690; J1885; J2250; J2590

== ENCOUNTER → 2019-04-29 | Outpatient (CLI) | payer BC ==
[2019-04-29 12:00] LABS: Basophils # (auto) 0.1 uL; Basophils % (auto) 0.7 % (0.0-2.0); Eosinophils # (auto) 0.2 uL; Eosinophils % (auto) 1.8 % (0.0-7.0); Hematocrit 39.9 % (36.0-46.0); Hemoglobin 13.3 g/dL (12.2-16.2); Lymphocytes # (auto) 3.1 uL; Mean Corpuscular Hemoglobin 27.8 pg (28.0-32.0); Mean Corpuscular Hgb Conc. 33.4 g/dL (32.0-36.0); Mean Corpuscular Volume 83.2 fL (80.0-100.0); Monocytes # (auto) 0.8 uL; Monocytes % (auto) 8.7 % (0.0-12.0); Neutrophils # (auto) 4.7 uL; Neutrophils % (auto) 53.8 % (37.0-80.0); Nucleated Red Blood Cells % 0.1 %; Platelet Count (auto) 253 10^3/uL (140-450); Red Blood Cells 4.79 10^6/uL (4.0-5.20); Red Cell Distribution Width 15.3 % (11.8-14.3); White Blood Cell 8.8 10^3/uL (4.4-10.8)
== END | disposition home or self-care (01) ==
LOC: LAB 11:38
PROVIDERS: ATTEND Obstetrics & Gynecology
DX: D64.9 Anemia, unspecified (principal)
CPT/HCPCS: 36415; 85025

== ENCOUNTER → 2019-06-16 | Outpatient (CLI) | payer BC ==
[2019-06-16 09:15] LABS: Urine Bacteria FEW /hpf (None Seen); Urine Blood Negative /uL (Negative); Urine Mucus FEW (None Seen); Urine Specific Gravity 1.025 (1.001-1.035); Urine WBC 7 /hpf (0 - 5)
[2019-06-16 09:32] LABS: Potassium 3.8 mmol/L (3.5-5.1)
[2019-06-16 09:45] LABS: Albumin 3.8 g/dL (3.4-5.0); BUN/Creatinine Ratio 20.7; Bilirubin, Total 0.4 mg/dL (0.2-1.0); Calcium 8.6 mg/dL (8.5-10.1); Total Protein 7.3 g/dL (6.4-8.2)
== END | disposition home or self-care (01) ==
LOC: LAB 08:00
PROVIDERS: ATTEND Internal Medicine
DX: R21 Rash and other nonspecific skin eruption (principal); M47.816 Spondylosis without myelopathy or radiculopathy, lumbar region
CPT/HCPCS: 36415; 80053; 80061; 81001; 84439; 84443

== ENCOUNTER → 2019-11-18 | Outpatient (CLI) | payer BC ==
[2019-11-18 09:52] LABS: Urine Specific Gravity 1.024 (1.001-1.035)
[2019-11-18 09:53] LABS: Urine Blood Negative /uL (Negative); Urine WBC 5 /hpf (0 - 5)
[2019-11-18 09:54] LABS: Urine Bacteria FEW /hpf (None Seen); Urine Mucus FEW (None Seen)
[2019-11-18 09:55] LABS: Urine Hyaline Cast FEW /lpf (0 - 2)
== END | disposition home or self-care (01) ==
LOC: LAB 09:46
PROVIDERS: ATTEND Internal Medicine
DX: E04.9 Nontoxic goiter, unspecified (principal); N39.0 Urinary tract infection, site not specified
CPT/HCPCS: 36415; 81001; 84443; 87086

== ENCOUNTER → 2020-02-26 | Outpatient (CLI) | payer OTHER | END | disposition home or self-care (01) | LOC: LAB 12:13 | PROVIDERS: ATTEND Nurse Practitioner Family | DX: Z20.828 Contact with and (suspected) exposure to other viral communicable diseases (principal) | CPT/HCPCS: 87635 ==

== ENCOUNTER → 2020-03-22 | Outpatient (CLI) | payer OTHER | END | disposition home or self-care (01) | LOC: LAB 15:45 | PROVIDERS: ATTEND Nurse Practitioner Family | DX: Z20.828 Contact with and (suspected) exposure to other viral communicable diseases (principal) ==

== ENCOUNTER → 2020-06-03 | Outpatient (CLI) | payer BC ==
[2020-06-03 15:31] LABS: Basophils # (auto) 0.1 10 ^3/uL (0-0.2); Basophils % (auto) 0.8 % (0.0-2.0); Eosinophils # (auto) 0.2 10 ^3/uL (0-0.8); Eosinophils % (auto) 1.5 % (0.0-7.0); Hematocrit 39.9 % (36.0-46.0); Hemoglobin 13.3 g/dL (12.2-16.2); Lymphocytes # (auto) 3.1 10 ^3/uL (0.4-5.4); Lymphocytes % (auto) 27.9 % (10.0-50.0); Mean Corpuscular Hemoglobin 28.9 pg (28.0-32.0); Mean Corpuscular Hgb Conc. 33.3 g/dL (32.0-36.0); Mean Corpuscular Volume 86.9 fL (80.0-100.0); Monocytes # (auto) 0.9 10 ^3/uL (0-1.3); Monocytes % (auto) 8.2 % (0.0-12.0); Neutrophils % (auto) 61.6 % (37.0-80.0); Platelet Count (auto) 260 10^3/uL (140-450); Red Cell Distribution Width 13.5 % (11.8-14.3); White Blood Cell 11.3 10^3/uL (4.4-10.8)
[2020-06-03 15:57] LABS: Albumin 3.8 g/dL (3.4-5.0); Calcium 8.9 mg/dL (8.5-10.1); Potassium 3.3 mmol/L (3.5-5.1)
[2020-06-03 15:59] LABS: BUN/Creatinine Ratio 18.8
[2020-06-03 16:01] LABS: Bilirubin, Total 0.2 mg/dL (0.2-1.0); Total Protein 7.5 g/dL (6.4-8.2)
[2020-06-03 16:14] LABS: Thyroid Stimulating Hormone 0.61 uIU/mL (0.358-3.74)
== END | disposition home or self-care (01) ==
LOC: EEVIPCON 12:43 → LAB 12:43
PROVIDERS: ATTEND Internal Medicine
DX: Z34.90 Encounter for supervision of normal pregnancy, unspecified, unspecified trimester (principal); E55.9 Vitamin D deficiency, unspecified; R11.0 Nausea; Z3A.00 Weeks of gestation of pregnancy not specified
CPT/HCPCS: 36415; 80053; 82306; 84439; 84443; 84702; 85025; 85652

== ENCOUNTER → 2020-06-07 | Outpatient (CLI) | payer BC ==
[2020-06-07 11:36] LABS: Urine WBC None Seen /hpf (0 - 5)
[2020-06-07 11:54] LABS: Urine Bacteria NONE SEEN /hpf (None Seen); Urine Blood Negative /uL (Negative); Urine Specific Gravity 1.016 (1.001-1.035)
== END | disposition home or self-care (01) ==
LOC: LAB 11:32
PROVIDERS: ATTEND Internal Medicine
DX: R35.0 Frequency of micturition (principal)
CPT/HCPCS: 81001

== ENCOUNTER → 2020-06-26 | Outpatient (CLI) | payer BC ==
[2020-06-26 10:20] LABS: Basophils # (auto) 0 10 ^3/uL (0-0.2); Basophils % (auto) 0.4 % (0.0-2.0); Eosinophils # (auto) 0.1 10 ^3/uL (0-0.8); Eosinophils % (auto) 1.2 % (0.0-7.0); Hematocrit 40.6 % (36.0-46.0); Hemoglobin 13.5 g/dL (12.2-16.2); Lymphocytes % (auto) 18.2 % (10.0-50.0); Mean Corpuscular Hemoglobin 28.6 pg (28.0-32.0); Mean Corpuscular Hgb Conc. 33.2 g/dL (32.0-36.0); Mean Corpuscular Volume 86.3 fL (80.0-100.0); Monocytes # (auto) 0.8 10 ^3/uL (0-1.3); Neutrophils # (auto) 8.1 10 ^3/uL (1.6-8.6); Neutrophils % (auto) 73.2 % (37.0-80.0); Nucleated Red Blood Cells % 0.1 %; Platelet Count (auto) 249 10^3/uL (140-450); Red Blood Cells 4.71 10^6/uL (4.0-5.20); Red Cell Distribution Width 13.6 % (11.8-14.3); White Blood Cell 11.1 10^3/uL (4.4-10.8)
[2020-06-27 10:06] LABS: RPR Non Reactive (Non Reactive)
== END | disposition home or self-care (01) ==
LOC: LAB 09:13
PROVIDERS: ATTEND Specialist
DX: Z34.81 Encounter for supervision of other normal pregnancy, first trimester (principal); Z31.430 Encounter of female for testing for genetic disease carrier status for procreative management; Z36.9 Encounter for antenatal screening, unspecified; Z3A.10 10 weeks gestation of pregnancy
CPT/HCPCS: 36415; 83036; 84112; 84702; 85025; 86592; 86703; 86762; 86850; 86900; 86901; 87086; 87340

== ENCOUNTER → 2020-07-02 | Outpatient (CLI) | payer BC | END | disposition home or self-care (01) | LOC: LAB 17:30 | PROVIDERS: ATTEND Nurse Practitioner Family | DX: Z20.828 Contact with and (suspected) exposure to other viral communicable diseases (principal) | CPT/HCPCS: C9803; U0003 ==

== ENCOUNTER 2020-08-09 15:12 | Emergency (ER) | payer BC ==
[~2020-08-09] VITALS: Ht 154.9 cm; Wt 80.3 kg
[2020-08-09 15:49] VITALS: BP 113/77
== END 2020-08-09 17:39 | disposition home or self-care (01) ==
LOC: ER 15:12
DX: O26.892 Other specified pregnancy related conditions, second trimester (principal); R10.30 Lower abdominal pain, unspecified; Z3A.17 17 weeks gestation of pregnancy
CPT/HCPCS: 76805

== ENCOUNTER → 2020-09-27 | Outpatient (CLI) | payer BC ==
[2020-09-27 08:51] LABS: Basophils # (auto) 0.1 10 ^3/uL (0-0.2); Basophils % (auto) 0.5 % (0.0-2.0); Eosinophils # (auto) 0.1 10 ^3/uL (0-0.8); Hematocrit 35.2 % (36.0-46.0); Hemoglobin 11.7 g/dL (12.2-16.2); Lymphocytes % (auto) 19.6 % (10.0-50.0); Mean Corpuscular Hemoglobin 28.1 pg (28.0-32.0); Mean Corpuscular Hgb Conc. 33.4 g/dL (32.0-36.0); Mean Corpuscular Volume 84.2 fL (80.0-100.0); Monocytes # (auto) 0.8 10 ^3/uL (0-1.3); Monocytes % (auto) 7.6 % (0.0-12.0); Neutrophils # (auto) 7.3 10 ^3/uL (1.6-8.6); Neutrophils % (auto) 71.3 % (37.0-80.0); Platelet Count (auto) 201 10^3/uL (140-450); Red Blood Cells 4.17 10^6/uL (4.0-5.20); Red Cell Distribution Width 13.8 % (11.8-14.3); White Blood Cell 10.2 10^3/uL (4.4-10.8)
== END | disposition home or self-care (01) ==
LOC: LAB 08:34
PROVIDERS: ATTEND Specialist
DX: Z34.82 Encounter for supervision of other normal pregnancy, second trimester (principal); Z3A.22 22 weeks gestation of pregnancy
CPT/HCPCS: 36415; 82951; 85025

== ENCOUNTER 2020-11-26 02:39 | Observation (INO) | payer BC ==
[~2020-11-26] VITALS: Ht 157.5 cm; Wt 84.8 kg
[2020-11-26] MEDS ORDERED: ALUM & MAG HYDROX-SIMETH LIQ(MAALOX) 30 ML PO ONE (03:30)
[2020-11-26] MEDS ORDERED: TERBUTALINE SULFATE 1 MG/ML 1ML VIAL SC ONE (03:30)
== END 2020-11-26 04:37 | disposition home or self-care (01) ==
LOC: LDRP 02:39
PROVIDERS: ADMIT Obstetrics & Gynecology; ATTEND Obstetrics & Gynecology
DX: O26.893 Other specified pregnancy related conditions, third trimester (principal); R10.9 Unspecified abdominal pain; Z3A.32 32 weeks gestation of pregnancy
CPT/HCPCS: 59025; 81002; 94760; 96372; G0378; J3105

== ENCOUNTER 2021-01-12 09:05 | Outpatient (CLI) | payer BC | END 2021-01-12 09:27 | disposition home or self-care (01) | LOC: LAB 09:05 | PROVIDERS: ATTEND Specialist | DX: Z20.822 Contact with and (suspected) exposure to COVID-19 (principal) | CPT/HCPCS: C9803; U0003 ==

== ENCOUNTER 2021-01-14 04:15 | Inpatient (IN) | payer BC ==
[~2021-01-14] VITALS: Ht 33 cm; Wt 0.5 kg
[2021-01-14] VITALS (17 sets, daily range): BP systolic 94–128; BP diastolic 57–99
[2021-01-14] MEDS ORDERED: ceFAZolin 1GM/50ML 50 ML IV ONE (05:00)
[2021-01-14] MEDS ORDERED: LACTATED RINGER'S 1,000 ML IV ONE (05:00)
[2021-01-14 05:30] LABS: Basophils # (auto) 0 10 ^3/uL (0-0.2); Basophils % (auto) 0.4 % (0.0-2.0); Eosinophils # (auto) 0.1 10 ^3/uL (0-0.8); Eosinophils % (auto) 0.8 % (0.0-7.0); Hematocrit 30.5 % (36.0-46.0); Hemoglobin 10.1 g/dL (12.2-16.2); Lymphocytes % (auto) 24.8 % (10.0-50.0); Mean Corpuscular Hgb Conc. 33.1 g/dL (32.0-36.0); Mean Corpuscular Volume 75.5 fL (80.0-100.0); Monocytes # (auto) 0.6 10 ^3/uL (0-1.3); Neutrophils # (auto) 5.2 10 ^3/uL (1.6-8.6); Nucleated Red Blood Cells % 0.1 %; Red Blood Cells 4.04 10^6/uL (4.0-5.20); Red Cell Distribution Width 16.7 % (11.8-14.3); White Blood Cell 7.9 10^3/uL (4.4-10.8)
[2021-01-14 05:42] LABS: INR 0.96 (0.9-1.15); Partial Thromboplastin Time 25.9 sec (23.0-31.2)
[2021-01-14 05:51] LABS: Albumin 2.4 g/dL (3.4-5.0); Potassium 3.8 mmol/L (3.5-5.1)
[2021-01-14 05:57] LABS: BUN/Creatinine Ratio 17.9; Bilirubin, Total 0.2 mg/dL (0.2-1.0); Total Protein 5.6 g/dL (6.4-8.2)
[2021-01-14 06:58] LABS: Urine Bacteria FEW /hpf (None Seen); Urine Blood Negative /uL (Negative); Urine Specific Gravity 1.011 (1.001-1.035); Urine WBC <1 /hpf (0 - 5)
[2021-01-14] MEDS: LACTATED RINGER'S 1,000 ML IV SCH ×3 (07:01→22:08)
[2021-01-14 07:13] LABS: Amphetamine Screen, Urine NEGATIVE (NEGATIVE); Barbiturate Scree,Urine NEGATIVE (NEGATIVE); Benzodiazephine Screen, Urine NEGATIVE (NEGATIVE); Cannabinoid Screen, Urine NEGATIVE (NEGATIVE); Cocaine Screen, Urine NEGATIVE (NEGATIVE); Opiate Scree,Urine NEGATIVE (NEGATIVE); Phencyclidine Screen, Urine NEGATIVE (NEGATIVE)
[2021-01-14] MEDS ORDERED: TETRACAINE 1% INJ 2 ML VIAL IJ ONE (07:30)
[2021-01-14] MEDS ORDERED: fentaNYL CITRATE 100 MCG/2 ML VL ONE (07:32)
[2021-01-14] MEDS ORDERED: MORPHINE SULF PF 2 MG/2 ML SYRG ONE (07:32)
[2021-01-14] MEDS ORDERED: SODIUM CITR/CITRIC ACID ORAL SOLN 30 ML ONE (07:40)
[2021-01-14] MEDS ORDERED: ePHEDrine SULFATE 50 MG/ML AMP IV ONE (07:49)
[2021-01-14] MEDS ORDERED: SODIUM CITR/CITRIC ACID ORAL SOLN 30 ML PO SCH (09:00)
[2021-01-14] MEDS ORDERED: LACT. RINGERS/OXYTOCIN 20UNITS 1,000 ML IV ONE (09:30)
[2021-01-14] MEDS ORDERED: ceFAZolin 1GM/50ML 50 ML IV SCH (09:30)
[2021-01-14] MEDS ORDERED: ONDANSETRON HCL 4 MG/2 ML VIAL IV PRN (09:30)
[2021-01-14] MEDS ORDERED: GUM (CHEWING) 1 GUM CHEW CHEW ONE (09:30)
[2021-01-14] MEDS ORDERED: HYDROmorphone HCL 2 MG/ML VL IV PRN (09:30)
[2021-01-14] MEDS ORDERED: NALBUPHINE HCL 10 MG/1ml INJECTION IV ONE (13:15)
[2021-01-14] MEDS: KETOROLAC TROMETH 30 MG/ML 1ML VIAL IV PRN ×2 (13:18→20:02)
[2021-01-14] MEDS: ceFAZolin 1GM/50ML 50 ML IV SCH ×2 (15:42→23:44)
[2021-01-15] VITALS (9 sets, daily range): BP systolic 98–127; BP diastolic 67–75
[2021-01-15] MEDS ORDERED: HYDR-4902 PO (01:18)
[2021-01-15] MEDS: KETOROLAC TROMETH 30 MG/ML 1ML VIAL IV PRN (05:09)
[2021-01-15] MEDS: LACTATED RINGER'S 1,000 ML IV SCH (05:09)
[2021-01-15 05:57] LABS: Basophils # (auto) 0 10 ^3/uL (0-0.2); Basophils % (auto) 0.3 % (0.0-2.0); Eosinophils # (auto) 0.1 10 ^3/uL (0-0.8)
[2021-01-15 06:00] LABS: Eosinophils % (auto) 0.8 % (0.0-7.0); Hematocrit 26.8 % (36.0-46.0); Lymphocytes # (auto) 1.5 10 ^3/uL (0.4-5.4); Mean Corpuscular Hemoglobin 25.3 pg (28.0-32.0); Mean Corpuscular Hgb Conc. 33.6 g/dL (32.0-36.0); Mean Corpuscular Volume 75.2 fL (80.0-100.0); Monocytes # (auto) 0.6 10 ^3/uL (0-1.3); Monocytes % (auto) 6.8 % (0.0-12.0); Neutrophils % (auto) 76.1 % (37.0-80.0); Red Blood Cells 3.56 10^6/uL (4.0-5.20); Red Cell Distribution Width 16.9 % (11.8-14.3); White Blood Cell 9.3 10^3/uL (4.4-10.8)
[2021-01-15 07:07] LABS: RPR Non Reactive (Non Reactive)
[2021-01-15] MEDS ORDERED: diphenhdrAMINE HCL 25 MG CAP PO ONE (08:45)
[2021-01-15] MEDS: DOCUSATE SOD 100 MG CAP PO SCH ×2 (09:42→22:21)
[2021-01-15] MEDS: IBUPROFEN 800 MG TAB PO PRN ×2 (09:42→17:14)
[2021-01-15] MEDS: ceFAZolin 1GM/50ML 50 ML IV SCH (09:44)
[2021-01-15] MEDS: HYDROcodone-ACET 5/325MG TAB PO PRN (19:22)
[2021-01-16] MEDS: HYDROcodone-ACET 5/325MG TAB PO PRN ×3 (02:56→17:43)
[2021-01-16] MEDS: SIMETHICONE 80 MG CHEWABLE TABLET PO PRN ×3 (03:03→17:41)
[2021-01-16 03:30] VITALS: BP 129/84
[2021-01-16] MEDS: IBUPROFEN 800 MG TAB PO PRN ×2 (06:40→15:46)
[2021-01-16 07:13] VITALS: BP 115/68
[2021-01-16] MEDS: DOCUSATE SOD 100 MG CAP PO SCH ×2 (10:05→22:32)
[2021-01-16 11:00] VITALS: BP 117/75
[2021-01-16 15:30] VITALS: BP 117/67
[2021-01-16 18:19] VITALS: BP 113/69
[2021-01-16 23:00] VITALS: BP 113/71
[2021-01-17] MEDS: IBUPROFEN 800 MG TAB PO PRN (03:03)
[2021-01-17 03:08] VITALS: BP 113/68
[2021-01-17 07:00] VITALS: BP 115/73
[2021-01-17] MEDS: HYDROcodone-ACET 5/325MG TAB PO PRN (10:33)
[2021-01-17] MEDS: DOCUSATE SOD 100 MG CAP PO SCH (10:33)
[2021-01-17 11:30] VITALS: BP 116/76
== END 2021-01-17 11:35 | disposition home or self-care (01) | DRG 785 ==
LOC: LDRP 04:15
PROVIDERS: ADMIT Obstetrics & Gynecology; ATTEND Obstetrics & Gynecology
PROC: 0UL70CZ Occlusion of Bilateral Fallopian Tubes with Extraluminal Device, Open Approach (ICD-10-PCS; 2021-01-14)
PROC: 10D00Z1 Extraction of Products of Conception, Low, Open Approach (ICD-10-PCS; principal; 2021-01-14 07:49)
DX: O34.211 Maternal care for low transverse scar from previous cesarean delivery (principal); D64.9 Anemia, unspecified; Z3A.39 39 weeks gestation of pregnancy; Z37.0 Single live birth; O90.81 Anemia of the puerperium
CPT/HCPCS: 36415; 80053; 80307; 81001; 85025; 85610; 85730; 86592; 86850; 86900; 86901; 94760; 94762; 96360; 96361; G0378; J0690; J1885

== ENCOUNTER → 2021-03-07 | Outpatient (CLI) | payer BC ==
[~2021-03-07] MED LIST changes: +HYDR-4902 PO
[2021-03-07 09:49] LABS: Urine Bacteria FEW /hpf (None Seen); Urine Blood Negative /uL (Negative); Urine Mucus FEW (None Seen); Urine Specific Gravity 1.022 (1.001-1.035); Urine WBC 1 /hpf (0 - 5)
== END | disposition home or self-care (01) ==
LOC: LAB 09:29
PROVIDERS: ATTEND Specialist
DX: Z01.419 Encounter for gynecological examination (general) (routine) without abnormal findings (principal)
CPT/HCPCS: 81001; 87086

== ENCOUNTER → 2021-06-09 | Outpatient (CLI) | payer BC ==
[2021-06-09 10:59] LABS: Basophils # (auto) 0 10 ^3/uL (0-0.2); Basophils % (auto) 0.5 % (0.0-2.0); Eosinophils # (auto) 0.2 10 ^3/uL (0-0.8); Eosinophils % (auto) 1.9 % (0.0-7.0); Hematocrit 41.3 % (36.0-46.0); Lymphocytes # (auto) 3.3 10 ^3/uL (0.4-5.4); Lymphocytes % (auto) 36.9 % (10.0-50.0); Mean Corpuscular Hgb Conc. 33.8 g/dL (32.0-36.0); Mean Corpuscular Volume 82.9 fL (80.0-100.0); Monocytes # (auto) 0.7 10 ^3/uL (0-1.3); Monocytes % (auto) 7.6 % (0.0-12.0); Neutrophils # (auto) 4.7 10 ^3/uL (1.6-8.6); Neutrophils % (auto) 53.1 % (37.0-80.0); Red Blood Cells 4.98 10^6/uL (4.0-5.20); White Blood Cell 8.8 10^3/uL (4.4-10.8)
[2021-06-09 11:50] LABS: % Iron Saturation 30.8 % (15-50); Potassium 3.9 mmol/L (3.5-5.1)
[2021-06-09 11:51] LABS: Free T4 (Free Thyroxine) 1.06 ng/dL (0.89-1.76)
[2021-06-09 12:08] LABS: Albumin 4.1 g/dL (3.4-5.0); BUN/Creatinine Ratio 16.9; Bilirubin, Total 0.5 mg/dL (0.2-1.0); Calcium 8.2 mg/dL (8.5-10.1); Total Protein 7.4 g/dL (6.4-8.2)
== END | disposition home or self-care (01) ==
LOC: LAB 10:21
PROVIDERS: ATTEND Internal Medicine
DX: D64.9 Anemia, unspecified (principal)
CPT/HCPCS: 36415; 80053; 82607; 83540; 83550; 84439; 84443; 85025; 85652

== ENCOUNTER → 2022-04-10 | Outpatient (CLI) | payer MEDICAID ==
[2022-04-10 12:26] LABS: Basophils # (auto) 0 10 ^3/uL (0-0.2); Basophils % (auto) 0.6 % (0.0-2.0); Eosinophils # (auto) 0.2 10 ^3/uL (0-0.8); Eosinophils % (auto) 2.4 % (0.0-7.0); Hematocrit 42.2 % (36.0-46.0); Hemoglobin 13.5 g/dL (12.2-16.2); Lymphocytes # (auto) 2.8 10 ^3/uL (0.4-5.4); Lymphocytes % (auto) 37.3 % (10.0-50.0); Mean Corpuscular Hemoglobin 27.5 pg (28.0-32.0); Mean Corpuscular Volume 85.8 fL (80.0-100.0); Monocytes # (auto) 0.5 10 ^3/uL (0-1.3); Monocytes % (auto) 6.9 % (0.0-12.0); Neutrophils # (auto) 3.9 10 ^3/uL (1.6-8.6); Neutrophils % (auto) 52.8 % (37.0-80.0); Nucleated Red Blood Cells % 0.1 %; Red Blood Cells 4.92 10^6/uL (4.0-5.20); Red Cell Distribution Width 13.7 % (11.8-14.3); White Blood Cell 7.4 10^3/uL (4.4-10.8)
[2022-04-10 12:42] LABS: Urine Bacteria NONE SEEN /hpf (None Seen); Urine Blood Negative /uL (Negative); Urine Mucus FEW (None Seen); Urine Specific Gravity 1.027 (1.001-1.035); Urine WBC 1 /hpf (0 - 5)
[2022-04-10 13:03] LABS: Potassium 4.2 mmol/L (3.5-5.1)
[2022-04-10 13:10] LABS: BUN/Creatinine Ratio 24.1; Bilirubin, Total 0.5 mg/dL (0.2-1.0); Total Protein 7.5 g/dL (6.4-8.2)
[2022-04-10 13:20] LABS: Free T4 (Free Thyroxine) 1.04 ng/dL (0.89-1.76)
== END | disposition home or self-care (01) ==
LOC: LAB 11:45
PROVIDERS: ATTEND Student in an Organized Health Care Education/Training Program
DX: E04.1 Nontoxic single thyroid nodule (principal); R73.9 Hyperglycemia, unspecified; R03.0 Elevated blood-pressure reading, without diagnosis of hypertension
CPT/HCPCS: 36415; 80053; 80061; 81001; 83036; 84439; 84443; 84480; 85025

== ENCOUNTER → 2023-09-12 | Outpatient (CLI) | payer MEDICAID ==
[2023-09-12 14:06] LABS: Basophils # (auto) 0.1 10 ^3/uL (0-0.2); Basophils % (auto) 0.8 % (0.0-2.0); Eosinophils # (auto) 0.2 10 ^3/uL (0-0.8); Hematocrit 42.2 % (36.0-46.0); Hemoglobin 13.9 g/dL (12.2-16.2); Lymphocytes # (auto) 2.8 10 ^3/uL (0.4-5.4); Lymphocytes % (auto) 29.2 % (10.0-50.0); Mean Corpuscular Volume 84.9 fL (80.0-100.0); Monocytes # (auto) 0.7 10 ^3/uL (0-1.3); Monocytes % (auto) 7.6 % (0.0-12.0); Neutrophils # (auto) 5.9 10 ^3/uL (1.6-8.6); Neutrophils % (auto) 60.4 % (37.0-80.0); Nucleated Red Blood Cells % 0.1 %; Red Blood Cells 4.97 10^6/uL (4.0-5.20); Red Cell Distribution Width 13.8 % (11.8-14.3); White Blood Cell 9.7 10^3/uL (4.4-10.8)
[2023-09-12 15:04] LABS: Follicle Stimulating Hormone 2.32 IU/L (SEE BELOW); Leuteinizing Hormone 3.4 IU/L
== END | disposition home or self-care (01) ==
LOC: LAB 13:46
PROVIDERS: ATTEND Obstetrics & Gynecology
DX: N93.9 Abnormal uterine and vaginal bleeding, unspecified (principal)
CPT/HCPCS: 36415; 82670; 83001; 83002; 84403; 84443; 85025

== ENCOUNTER → 2023-11-08 | Outpatient (CLI) | payer MEDICAID ==
[2023-11-09 08:06] LABS: Anti-Nuclear Antibody Direct Negative (Negative)
== END | disposition home or self-care (01) ==
LOC: LAB 15:09
PROVIDERS: ATTEND Student in an Organized Health Care Education/Training Program
DX: R21 Rash and other nonspecific skin eruption (principal)
CPT/HCPCS: 82785; 86038

== ENCOUNTER 2025-05-19 08:45 | Outpatient (CLI) | payer MEDICAID ==
[2025-05-19] MEDS ORDERED: ALBUTEROL SULF 2.5 MG/0.5ML(0.5%) NEB SOLN ONE (09:04)
== END 2025-05-19 17:00 | disposition home or self-care (01) ==
LOC: RT 08:45
PROVIDERS: ATTEND Internal Medicine Pulmonary Disease
DX: R05.3 Chronic cough (principal); R06.9 Unspecified abnormalities of breathing; R06.00 Dyspnea, unspecified
CPT/HCPCS: 94060; 94727; 94729